=== PATIENT | male | born 1990 | race African-American/Black ===

== ENCOUNTER → 2017-08-19 16:23 | Emergency (ER) | payer SELFPAY ==
--- NOTE | 2017-08-19 16:23 | DT_ITS ---
This patient was seen during an EMR downtime August 19, 2017 - August 26, 2017. This patient may have a combination of paper and electronic documentation or all paper documentation. All documentation is viewable within the e-chart portion of [facility] for each patient visit.
== END | disposition left against medical advice (07) ==
LOC: ED 08-21 13:38
PROVIDERS: Emergency Provider Emergency Medicine
DX: R69 Illness, unspecified (principal)